=== PATIENT | female | born 1955 | race Hispanic/Latino ===

== ENCOUNTER 2022-01-05 12:52 | Emergency (ER) | payer BC, OTHER ==
[~2022-01-05] VITALS: Ht 172.7 cm; Wt 158.8 kg
[2022-01-05] MEDS ORDERED: HYDROCODONE/APAP 5MG-325MG TAB PO PRN (13:15)
[2022-01-05] MEDS ORDERED: TETANUS/DIPHTHERIA TOX ADULT 0.5 ML SYR IM ONE (13:15)
[2022-01-05] MEDS ORDERED: LIDOCAINE 1% W/EPINEPHRINE 20 ML VIAL INJ ONE (13:15)
[2022-01-05] MEDS ORDERED: ACETAMINOPHEN-1 EAC4 PO (14:58)
== END 2022-01-05 15:26 | disposition home or self-care (01) ==
LOC: ER 13:02
DX: S01.81XA Laceration without foreign body of other part of head, initial encounter (principal); W01.198A Fall on same level from slipping, tripping and stumbling with subsequent striking against other object, initial encounter; Y93.01 Activity, walking, marching and hiking; Y92.89 Other specified places as the place of occurrence of the external cause; S52.571A Other intraarticular fracture of lower end of right radius, initial encounter for closed fracture; E04.1 Nontoxic single thyroid nodule
CPT/HCPCS: 70450; 72125; 99284